=== PATIENT | female | born 1960 | race Caucasian/White ===

== ENCOUNTER 2020-07-06 19:16 | Observation (INO) ==
[2020-07-06] MEDS ORDERED: ONDANSETRON 4 MG/2 ML VIAL IV STA (19:24)
[2020-07-06 19:32] LABS: Basophils # 0.1 10*3/uL (0.0-0.2); Basophils % 0.6 % (0.0-0.8); Eosinophils # 0.2 10*3/uL (0.0-0.87); Eosinophils % 1.7 % (0.00-10.9); Hematocrit 45.8 VOL% (35.7-47.0); Hemoglobin 14.7 GM/DL (12.0-16.0); Immature Granulocytes % 1.8 %; Immature Granulocytes Absolute 0.18 #; Lymphocytes # 2.7 10*3/uL (1.4-4.0); Lymphocytes % 26.3 % (21.3-54.2); Mean Corpuscular HGB Conc 32.1 GM/DL (32-36); Mean Corpuscular Volume 92.2 FL (87-102); Mean Platelet Volume 9.2 FL (9.6-12.0); Monocytes % 8.9 % (1.7-12.7); Neutrophils % 60.7 % (38.7-73.9); Platelet Count 167 T/CUMM (130-400); Red Blood Count 4.97 MC/CUMM (3.8-5.5); White Blood Count 10.2 T/CUMM (4-12)
[2020-07-06 19:51] LABS: Partial Thromboplastin Time 27.6 SECS (23.9-33.8)
[2020-07-06 20:03] LABS: Alanine Aminotransferase 24 U/L (13-56); Albumin 3.4 G/DL (3.4-5.0); Alkaline Phosphatase 100 U/L (45-117); Aspartate Amino Transferase 24 U/L (0-37); Bilirubin,Total < 0.39 MG/DL (0.2-1.0); Blood Urea Nitrogen 26 MG/DL (7-18); Calcium 9.7 MG/DL (8.5-10.1); Carbon Dioxide 29 MMOL/L (21-32); Estimated Glom Filtration Rate 64 ML/MIN; Glucose 105 MG/DL (74-106); Osmolality,Calculated 277.8 MOS/KG (273-304); Potassium 3.3 MMOL/L (3.5-5.1); Sodium 137 MMOL/L (136-145); Total Protein 7.6 G/DL (6.4-8.3)
[2020-07-06] MEDS ORDERED: POTASSIUM CHLORIDE 20 MEQ TABLET PO STA (20:09)
[2020-07-06 20:34] LABS: Bilirubin,Urine Negative (Negative); Blood, Urine Negative (Negative); Glucose,Urine (UA) Negative (Negative); Ketones,Urine Negative (Negative); Mucus,Urine Occasional /LPF (Occasional); Nitrite,Urine Negative (Negative); Protein,Urine Negative; RBC,Urine 2 /HPF (0-4); Squamous Epithelial Cell,Urine Occasional /HPF (0-10); Urine Appearance Slightly Hazy (Clear); Urine Color Straw (Yellow); Urine Specific Gravity 1.008 (1.001-1.035); Urine Urobilinogen < 2.0 EU/DL (0.2-1.0); WBC,Urine 12 /HPF (0-6)
[2020-07-06 20:37] LABS: Barbiturates Screen,Urine Negative (Negative); Benzodiazepines Screen,Urine Negative (Negative); Cannabinoid Screen,Urine Negative (Negative); Opiate Screen,Urine Negative (Negative); Phencyclidine Screen,Urine Negative (Negative)
[2020-07-06] MEDS ORDERED: cefTRIAXone 1,000 MG in SODIUM CHLORIDE 0.9% 100 ML IV STA (20:55)
[2020-07-06] MEDS ORDERED: DEXTROSE 50% 25 GM/50 ML VIAL IV PRN (21:37)
[2020-07-06] MEDS ORDERED: LABETALOL 20 MG/4 ML SYRINGE IV PRN (21:37)
[2020-07-06] MEDS ORDERED: GLUCAGON 1 MG VIAL IM PRN (21:37)
[2020-07-06] MEDS ORDERED: ACETAMINOPHEN 325 MG TABLET PO PRN (21:37)
[2020-07-06] MEDS ORDERED: ZALEPLON 5 MG CAPSULE PO PRN (21:37)
[2020-07-06] MEDS ORDERED: ONDANSETRON 4 MG/2 ML VIAL IV PRN (21:37)
[2020-07-06] MEDS ORDERED: ALBUTEROL 2.5 MG/3 ML NEB RESP TX PRN (21:44)
[2020-07-06] MEDS ORDERED: IBUPROFEN 800 MG TABLET PO PRN (21:44)
[2020-07-06] MEDS ORDERED: tiZANidine 4 MG TABLET PO PRN (21:44)
[2020-07-06] MEDS ORDERED: ENOXAPARIN 40 MG/0.4 ML SYRINGE SUBCUT SCH (22:00)
[2020-07-06] MEDS: BUDESONIDE/FORMOTEROL 160-4.5 INHALER 6 GM INH SCH (23:41)
[2020-07-07] MEDS: FLUoxetine 20 MG CAPSULE PO SCH (08:05)
[2020-07-07] MEDS: MAGNESIUM CHLORIDE 64 MG TABLET PO SCH (08:05)
[2020-07-07] MEDS: predniSONE 20 MG TABLET PO SCH (08:05)
[2020-07-07] MEDS: PANTOPRAZOLE 40 MG TABLET PO SCH (08:05)
[2020-07-07] MEDS: LOSARTAN 50 MG TABLET PO SCH (08:05)
[2020-07-07] MEDS: hydroCHLOROthiazide 25 MG TABLET PO SCH (08:05)
[2020-07-07] MEDS: BUDESONIDE/FORMOTEROL 160-4.5 INHALER 6 GM INH SCH ×2 (08:05→20:41)
[2020-07-07] MEDS: amLODIPine 10 MG TABLET PO SCH (08:05)
[2020-07-07 08:41] LABS: Basophils # 0.1 10*3/uL (0.0-0.2); Basophils % 0.9 % (0.0-0.8); Eosinophils # 0.2 10*3/uL (0.0-0.87); Eosinophils % 2.2 % (0.00-10.9); Hematocrit 46.2 VOL% (35.7-47.0); Hemoglobin 14.6 GM/DL (12.0-16.0); Immature Granulocytes Absolute 0.08 #; Lymphocytes # 1.7 10*3/uL (1.4-4.0); Lymphocytes % 20.4 % (21.3-54.2); Mean Corpuscular HGB Conc 31.6 GM/DL (32-36); Mean Corpuscular Volume 94.5 FL (87-102); Mean Platelet Volume 9.7 FL (9.6-12.0); Monocytes % 8.2 % (1.7-12.7); Neutrophils % 67.3 % (38.7-73.9); Platelet Count 169 T/CUMM (130-400); Red Blood Count 4.89 MC/CUMM (3.8-5.5); White Blood Count 8.2 T/CUMM (4-12)
[2020-07-07] MEDS ORDERED: ASPIRIN 325 MG TABLET PO SCH (09:00)
[2020-07-07 09:19] LABS: Alanine Aminotransferase 22 U/L (13-56); Albumin 3.2 G/DL (3.4-5.0); Alkaline Phosphatase 86 U/L (45-117); Aspartate Amino Transferase 23 U/L (0-37); Bilirubin,Total < 0.39 MG/DL (0.2-1.0); Blood Urea Nitrogen 26 MG/DL (7-18); Calcium 9.1 MG/DL (8.5-10.1); Carbon Dioxide 26 MMOL/L (21-32); Estimated Glom Filtration Rate 64 ML/MIN; Glucose 138 MG/DL (74-106); HDL Cholesterol 41 MG/DL (40-60); Osmolality,Calculated 285.4 MOS/KG (273-304); Potassium 4.1 MMOL/L (3.5-5.1); Risk Ratio 4.68; Sodium 140 MMOL/L (136-145); Total Protein 7.5 G/DL (6.4-8.3); Triglycerides 193 MG/DL (2-150); VLDL CHOLESTEROL 38.6 MG/DL
[2020-07-07] MEDS ORDERED: ASPIRIN EC 81 MG TABLET PO SCH (17:35)
[2020-07-07] MEDS ORDERED: cefTRIAXone 1,000 MG in SYRINGE 1 EACH IV SCH (20:00)
[2020-07-07] MEDS ORDERED: ATORVASTATIN 20 MG TABLET PO SCH (21:00)
[2020-07-08] MEDS: hydroCHLOROthiazide 25 MG TABLET PO SCH (08:04)
[2020-07-08] MEDS: FLUoxetine 20 MG CAPSULE PO SCH (08:04)
[2020-07-08] MEDS: PANTOPRAZOLE 40 MG TABLET PO SCH (08:05)
[2020-07-08] MEDS: amLODIPine 10 MG TABLET PO SCH (08:05)
[2020-07-08] MEDS: predniSONE 20 MG TABLET PO SCH (08:05)
[2020-07-08] MEDS: MAGNESIUM CHLORIDE 64 MG TABLET PO SCH (08:05)
[2020-07-08] MEDS: LOSARTAN 50 MG TABLET PO SCH (08:05)
[2020-07-08] MEDS: BUDESONIDE/FORMOTEROL 160-4.5 INHALER 6 GM INH SCH (08:08)
[2020-07-08 08:33] VITALS: BP 128/67
[2020-07-08] MEDS ORDERED: CLOPIDOGREL 75 MG TABLET PO SCH (09:00)
== END 2020-07-08 11:43 | disposition home or self-care (01) ==
LOC: EDUNIT# → EDBD → N.EDINP 19:16 → N.ED 19:16 → N.TELES 22:09
PROVIDERS: ADMIT Family Medicine; ATTEND Family Medicine

== ENCOUNTER 2020-08-10 19:36 | Inpatient (IN) ==
[2020-08-10] MEDS ORDERED: SODIUM CHLORIDE 0.9% 1,000 ML IV STA (19:55)
[2020-08-10 20:13] LABS: Basophils # 0.1 10*3/uL (0.0-0.2); Basophils % 0.6 % (0.0-0.8); Eosinophils # 0.2 10*3/uL (0.0-0.87); Eosinophils % 1.4 % (0.00-10.9); Hematocrit 46.1 VOL% (35.7-47.0); Hemoglobin 14.4 GM/DL (12.0-16.0); Immature Granulocytes % 1.2 %; Immature Granulocytes Absolute 0.15 #; Lymphocytes # 3.9 10*3/uL (1.4-4.0); Mean Corpuscular HGB Conc 31.2 GM/DL (32-36); Mean Corpuscular Volume 94.9 FL (87-102); Mean Platelet Volume 9.4 FL (9.6-12.0); Monocytes % 8.4 % (1.7-12.7); Neutrophils % 57.4 % (38.7-73.9); Platelet Count 198 T/CUMM (130-400); Red Blood Count 4.86 MC/CUMM (3.8-5.5); Red Cell Distribution Width 14.3 % (9.3-17.3); White Blood Count 12.5 T/CUMM (4-12)
[2020-08-10 20:31] LABS: Alanine Aminotransferase 25 U/L (13-56); Albumin 3.5 G/DL (3.4-5.0); Alkaline Phosphatase 105 U/L (45-117); Aspartate Amino Transferase 28 U/L (0-37); Bilirubin,Total < 0.39 MG/DL (0.2-1.0); Blood Urea Nitrogen 19 MG/DL (7-18); Carbon Dioxide 27 MMOL/L (21-32); Estimated Glom Filtration Rate 68 ML/MIN; Glucose 128 MG/DL (74-106); Osmolality,Calculated 282.4 MOS/KG (273-304); Potassium 3.1 MMOL/L (3.5-5.1); Sodium 140 MMOL/L (136-145); Total Protein 7.8 G/DL (5.0-7.5)
[2020-08-10 20:40] LABS: PT Patient Result 10.9 SECS (9.8-11.9); Partial Thromboplastin Time 25.4 SECS (23.9-33.8)
[2020-08-10] MEDS ORDERED: ALBUTEROL/IPRATROPIUM 3 ML NEB RESP TX STA (22:00)
[2020-08-10 22:06] LABS: Basophils # 0.1 10*3/uL (0.0-0.2); Basophils % 0.3 % (0.0-0.8); Eosinophils % 0.2 % (0.00-10.9); Hematocrit 40.5 VOL% (35.7-47.0); Hemoglobin 12.9 GM/DL (12.0-16.0); Immature Granulocytes % 1.3 %; Immature Granulocytes Absolute 0.19 #; Lymphocytes # 1.3 10*3/uL (1.4-4.0); Lymphocytes % 8.4 % (21.3-54.2); Mean Corpuscular HGB Conc 31.9 GM/DL (32-36); Mean Corpuscular Volume 94.8 FL (87-102); Mean Platelet Volume 9.5 FL (9.6-12.0); Monocytes % 5.4 % (1.7-12.7); Neutrophils % 84.4 % (38.7-73.9); Platelet Count 142 T/CUMM (130-400); Red Blood Count 4.27 MC/CUMM (3.8-5.5); Red Cell Distribution Width 14.4 % (9.3-17.3); White Blood Count 15.1 T/CUMM (4-12)
[2020-08-10] MEDS ORDERED: DEXTROSE 50% 25 GM/50 ML VIAL IV PRN (23:00)
[2020-08-10] MEDS ORDERED: NICOTINE 21 MG/24 HR PATCH TRANSDERM PRN (23:00)
[2020-08-10] MEDS ORDERED: guaiFENesin/DM ER 600-30 MG TABLET PO PRN (23:00)
[2020-08-10] MEDS ORDERED: GLUCAGON 1 MG VIAL IM PRN (23:00)
[2020-08-10] MEDS ORDERED: ALUMINUM/MAGNES/SIMETH MAX STR 30 ML UDCUP PO PRN (23:00)
[2020-08-10] MEDS ORDERED: SIMETHICONE CHEW 125 MG TABLET PO PRN (23:00)
[2020-08-10] MEDS ORDERED: ZALEPLON 5 MG CAPSULE PO PRN (23:00)
[2020-08-10] MEDS ORDERED: ACETAMINOPHEN 325 MG TABLET PO PRN (23:00)
[2020-08-10] MEDS ORDERED: diphenhydrAMINE CAP 25 MG CAPSULE PO PRN (23:00)
[2020-08-10] MEDS ORDERED: PROMETHAZINE 25 MG/1 ML VIAL IM PRN (23:00)
[2020-08-10] MEDS ORDERED: hydrALAZINE 20 MG/1 ML VIAL IV PRN (23:00)
[2020-08-10] MEDS ORDERED: BISACODYL 5 MG TABLET PO PRN (23:00)
[2020-08-10] MEDS ORDERED: ONDANSETRON 4 MG/2 ML VIAL IV PRN (23:00)
[2020-08-10] MEDS ORDERED: MORPHINE 4 MG/1 ML VIAL IV PRN (23:00)
[2020-08-10] MEDS ORDERED: PANTOPRAZOLE 40 MG VIAL IV ONE (23:01)
[2020-08-11] MEDS: ALBUTEROL/IPRATROPIUM 3 ML NEB RESP TX SCH ×4 (00:24→20:24)
[2020-08-11] MEDS: BUDESONIDE/FORMOTEROL 160-4.5 INHALER 6 GM INH SCH ×3 (00:35→22:20)
[2020-08-11] MEDS: DEXT 5% NACL 0.45% KCL 40 MEQ 40 MEQ/1,000 ML BAG IV SCH ×2 (05:00→19:01)
[2020-08-11 06:36] LABS: Basophils % 0.4 % (0.0-0.8); Eosinophils # 0.1 10*3/uL (0.0-0.87); Eosinophils % 0.9 % (0.00-10.9); Hematocrit 37.4 VOL% (35.7-47.0); Hemoglobin 12.1 GM/DL (12.0-16.0); Immature Granulocytes % 0.6 %; Immature Granulocytes Absolute 0.05 #; Lymphocytes # 1.9 10*3/uL (1.4-4.0); Lymphocytes % 23.6 % (21.3-54.2); Mean Corpuscular HGB Conc 32.4 GM/DL (32-36); Mean Platelet Volume 9.9 FL (9.6-12.0); Monocytes % 9.4 % (1.7-12.7); Neutrophils % 65.1 % (38.7-73.9); Platelet Count 140 T/CUMM (130-400); Red Blood Count 3.98 MC/CUMM (3.8-5.5); Red Cell Distribution Width 14.4 % (9.3-17.3)
[2020-08-11 06:53] LABS: Calcium 8.4 MG/DL (8.5-10.1); Osmolality,Calculated 283.3 MOS/KG (273-304)
[2020-08-11] MEDS ORDERED: POTASSIUM CHLORIDE RIDER 10 MEQ in PREMIX 1 EACH IV PRN (07:46)
[2020-08-11] MEDS ORDERED: ERGOCALCIFEROL 50,000 UNIT CAPSULE PO SCH (09:00)
[2020-08-11] MEDS ORDERED: CYANOCOBALAMIN 1000 MCG/1 ML VIAL IM SCH (09:00)
[2020-08-11] MEDS ORDERED: hydroCHLOROthiazide 25 MG TABLET PO SCH (09:00)
[2020-08-11] MEDS ORDERED: predniSONE 20 MG TABLET PO SCH (09:00)
[2020-08-11] MEDS ORDERED: BUDESONIDE/FORMOTEROL 160-4.5 INHALER 6 GM INH SCH (09:00)
[2020-08-11] MEDS: MAGNESIUM CHLORIDE 64 MG TABLET PO SCH (10:06)
[2020-08-11] MEDS: amLODIPine 10 MG TABLET PO SCH (10:06)
[2020-08-11] MEDS: FLUoxetine 20 MG CAPSULE PO SCH (10:06)
[2020-08-11] MEDS: PANTOPRAZOLE 40 MG VIAL IV SCH (10:09)
[2020-08-11] MEDS ORDERED: POTASSIUM CHLORIDE 20 MEQ TABLET PO ONE (11:31)
[2020-08-11 12:36] LABS: Hematocrit 39.3 VOL% (35.7-47.0); Hemoglobin 12.3 GM/DL (12.0-16.0)
[2020-08-11 17:55] LABS: Hematocrit 35.7 VOL% (35.7-47.0); Hemoglobin 11.3 GM/DL (12.0-16.0)
[2020-08-11] MEDS ORDERED: ATORVASTATIN 20 MG TABLET PO SCH (21:00)
[2020-08-12 00:58] LABS: Hematocrit 34.9 VOL% (35.7-47.0); Hemoglobin 10.9 GM/DL (12.0-16.0)
[2020-08-12 01:03] LABS: Calcium 8.3 MG/DL (8.5-10.1); Osmolality,Calculated 283.3 MOS/KG (273-304); Potassium 3.7 MMOL/L (3.5-5.1)
[2020-08-12] MEDS: ALBUTEROL/IPRATROPIUM 3 ML NEB RESP TX SCH ×3 (01:47→13:40)
[2020-08-12 05:35] LABS: Hemoglobin 10.9 GM/DL (12.0-16.0)
[2020-08-12] MEDS ORDERED: SODIUM CHLORIDE 0.9% 1,000 ML IV SCH (08:20)
[2020-08-12] MEDS ORDERED: LIDOCAINE 2% 5 ML VIAL ONE (09:18)
[2020-08-12] MEDS ORDERED: propofoL 200 MG/20 ML VIAL IV ONE (09:18)
[2020-08-12] MEDS: DEXT 5% NACL 0.45% KCL 40 MEQ 40 MEQ/1,000 ML BAG IV SCH (09:50)
[2020-08-12] MEDS: LACTATED RINGERS 1,000 ML IV SCH ×2 (09:56→12:26)
[2020-08-12] MEDS: MAGNESIUM CHLORIDE 64 MG TABLET PO SCH (10:58)
[2020-08-12] MEDS: FLUoxetine 20 MG CAPSULE PO SCH (10:59)
[2020-08-12] MEDS: amLODIPine 10 MG TABLET PO SCH (10:59)
[2020-08-12] MEDS: PANTOPRAZOLE 40 MG VIAL IV SCH (11:00)
[2020-08-12] MEDS: BUDESONIDE/FORMOTEROL 160-4.5 INHALER 6 GM INH SCH (12:15)
[2020-08-12 12:33] VITALS: BP 147/86
== END 2020-08-12 14:37 | disposition home or self-care (01) | DRG 379 ==
LOC: N.ED 19:36 → N.EDINP 23:33 → N.TELES 08-11 04:16
PROVIDERS: ADMIT Hospitalist; ATTEND Hospitalist

== ENCOUNTER 2020-08-18 05:38 | Inpatient (IN) ==
[2020-08-18] MEDS ORDERED: ONDANSETRON 4 MG/2 ML VIAL IV STA (06:17)
[2020-08-18] MEDS ORDERED: PANTOPRAZOLE 40 MG VIAL IV STA (06:17)
[2020-08-18] MEDS ORDERED: SODIUM CHLORIDE 0.9% 1,000 ML IV STA (06:17)
[2020-08-18 06:33] LABS: Basophils # 0.1 10*3/uL (0.0-0.2); Basophils % 0.7 % (0.0-0.8); Eosinophils # 0.1 10*3/uL (0.0-0.87); Eosinophils % 2.1 % (0.00-10.9); Hematocrit 39.9 VOL% (35.7-47.0); Hemoglobin 12.5 GM/DL (12.0-16.0); Immature Granulocytes % 0.6 %; Immature Granulocytes Absolute 0.04 #; Lymphocytes # 1.7 10*3/uL (1.4-4.0); Lymphocytes % 24.8 % (21.3-54.2); Mean Corpuscular HGB Conc 31.3 GM/DL (32-36); Mean Corpuscular Volume 94.8 FL (87-102); Mean Platelet Volume 9.5 FL (9.6-12.0); Monocytes % 9.5 % (1.7-12.7); Neutrophils % 62.3 % (38.7-73.9); Platelet Count 175 T/CUMM (130-400); Red Blood Count 4.21 MC/CUMM (3.8-5.5); Red Cell Distribution Width 14.2 % (9.3-17.3); White Blood Count 6.8 T/CUMM (4-12)
[2020-08-18 06:42] LABS: PT Patient Result 11.1 SECS (9.8-11.9); Partial Thromboplastin Time 25.9 SECS (23.9-33.8)
[2020-08-18 06:53] LABS: Alanine Aminotransferase 23 U/L (13-56); Albumin 3.2 G/DL (3.4-5.0); Alkaline Phosphatase 117 U/L (45-117); Aspartate Amino Transferase 26 U/L (0-37); Bilirubin,Total < 0.39 MG/DL (0.2-1.0); Blood Urea Nitrogen 14 MG/DL (7-18); Calcium 9.2 MG/DL (8.5-10.1); Carbon Dioxide 28 MMOL/L (21-32); Estimated Glom Filtration Rate 89 ML/MIN; Glucose 115 MG/DL (74-106); Osmolality,Calculated 278.5 MOS/KG (273-304); Sodium 139 MMOL/L (136-145); Total Protein 7.3 G/DL (6.4-8.2)
[2020-08-18] MEDS ORDERED: hydrALAZINE 20 MG/1 ML VIAL IV PRN (08:04)
[2020-08-18] MEDS ORDERED: DEXTROSE 50% 25 GM/50 ML VIAL IV PRN (08:04)
[2020-08-18] MEDS ORDERED: ONDANSETRON 4 MG/2 ML VIAL IV PRN (08:04)
[2020-08-18] MEDS ORDERED: DOCUSATE SODIUM 100 MG CAPSULE PO PRN (08:04)
[2020-08-18] MEDS ORDERED: guaiFENesin/DM ER 600-30 MG TABLET PO PRN (08:04)
[2020-08-18] MEDS ORDERED: GLUCAGON 1 MG VIAL IM PRN (08:04)
[2020-08-18] MEDS ORDERED: ACETAMINOPHEN 325 MG TABLET PO PRN (08:04)
[2020-08-18] MEDS: PANTOPRAZOLE 40 MG TABLET PO SCH (09:43)
[2020-08-18] MEDS ORDERED: BISACODYL 5 MG TABLET PO ONE (14:00)
[2020-08-18] MEDS: POTASSIUM CHLORIDE RIDER 10 MEQ in PREMIX 1 EACH IV SCH ×3 (16:15→18:15)
[2020-08-18] MEDS ORDERED: POLYETHYLENE GLYCOL POWDER 255 GM BOTTLE PO ONE (18:00)
[2020-08-19 06:46] LABS: Basophils % 0.5 % (0.0-0.8); Eosinophils # 0.1 10*3/uL (0.0-0.87); Eosinophils % 1.3 % (0.00-10.9); Hematocrit 28.9 VOL% (35.7-47.0); Immature Granulocytes % 0.5 %; Immature Granulocytes Absolute 0.03 #; Lymphocytes # 1.5 10*3/uL (1.4-4.0); Mean Corpuscular HGB Conc 31.1 GM/DL (32-36); Mean Corpuscular Volume 95.7 FL (87-102); Mean Platelet Volume 9.9 FL (9.6-12.0); Monocytes % 10.6 % (1.7-12.7); Neutrophils % 63.1 % (38.7-73.9); Platelet Count 153 T/CUMM (130-400); Red Blood Count 3.02 MC/CUMM (3.8-5.5); White Blood Count 6.1 T/CUMM (4-12)
[2020-08-19 06:54] LABS: INR 1.1; PT Patient Result 11.8 SECS (9.8-11.9)
[2020-08-19 07:02] LABS: Calcium 8.3 MG/DL (8.5-10.1); Osmolality,Calculated 279.4 MOS/KG (273-304); Potassium 3.2 MMOL/L (3.5-5.1)
[2020-08-19] MEDS ORDERED: POTASSIUM CHLORIDE RIDER 10 MEQ in PREMIX 1 EACH IV PRN (07:48)
[2020-08-19] MEDS ORDERED: LACTATED RINGERS 1,000 ML IV SCH (08:00)
[2020-08-19] MEDS: PANTOPRAZOLE 40 MG TABLET PO SCH (08:24)
[2020-08-19] MEDS ORDERED: propofoL 200 MG/20 ML VIAL IV ONE ×2 (08:43→08:45)
[2020-08-19] MEDS ORDERED: LIDOCAINE 2% 5 ML VIAL ONE (08:43)
[2020-08-19] MEDS ORDERED: ESOMEPRAZOLE MAGNESIUM 40 MG PO SCH (15:45)
[2020-08-19] MEDS: hydroCHLOROthiazide 25 MG TABLET PO SCH (17:22)
[2020-08-19] MEDS: MULTIVITAMIN (CENTRUM) TABLET PO SCH (17:22)
[2020-08-19] MEDS: ASCORBIC ACID 500 MG TABLET PO SCH (17:22)
[2020-08-19] MEDS: FLUoxetine 20 MG CAPSULE PO SCH (17:23)
[2020-08-19] MEDS: amLODIPine 10 MG TABLET PO SCH (17:23)
[2020-08-19] MEDS: MAGNESIUM CHLORIDE 64 MG TABLET PO SCH (17:23)
[2020-08-19] MEDS: LOSARTAN 50 MG TABLET PO SCH (17:23)
[2020-08-19] MEDS: POTASSIUM CHLORIDE 20 MEQ TABLET PO PRN ×4 (18:01→23:00)
[2020-08-19] MEDS ORDERED: ALBUTEROL 2.5 MG/3 ML NEB RESP TX PRN (19:00)
[2020-08-19] MEDS: BUDESONIDE/FORMOTEROL 160-4.5 INHALER 6 GM INH SCH (20:42)
[2020-08-20 05:28] LABS: Basophils % 0.7 % (0.0-0.8); Eosinophils # 0.1 10*3/uL (0.0-0.87); Eosinophils % 2.4 % (0.00-10.9); Hematocrit 27.9 VOL% (35.7-47.0); Hemoglobin 8.9 GM/DL (12.0-16.0); Immature Granulocytes % 0.5 %; Immature Granulocytes Absolute 0.03 #; Lymphocytes # 1.7 10*3/uL (1.4-4.0); Lymphocytes % 28.2 % (21.3-54.2); Mean Corpuscular HGB Conc 31.9 GM/DL (32-36); Mean Corpuscular Volume 95.5 FL (87-102); Mean Platelet Volume 9.6 FL (9.6-12.0); Monocytes % 11.7 % (1.7-12.7); Neutrophils % 56.5 % (38.7-73.9); Platelet Count 150 T/CUMM (130-400); Red Blood Count 2.92 MC/CUMM (3.8-5.5); Red Cell Distribution Width 13.9 % (9.3-17.3); White Blood Count 5.9 T/CUMM (4-12)
[2020-08-20 05:39] LABS: Calcium 8.4 MG/DL (8.5-10.1); Osmolality,Calculated 281.1 MOS/KG (273-304); Potassium 3.7 MMOL/L (3.5-5.1)
[2020-08-20] MEDS: MAGNESIUM CHLORIDE 64 MG TABLET PO SCH (09:14)
[2020-08-20] MEDS: ASCORBIC ACID 500 MG TABLET PO SCH (09:14)
[2020-08-20] MEDS: MULTIVITAMIN (CENTRUM) TABLET PO SCH (09:17)
[2020-08-20] MEDS: FLUoxetine 20 MG CAPSULE PO SCH (09:17)
[2020-08-20] MEDS: LOSARTAN 50 MG TABLET PO SCH (09:18)
[2020-08-20] MEDS: amLODIPine 10 MG TABLET PO SCH (09:19)
[2020-08-20] MEDS: hydroCHLOROthiazide 25 MG TABLET PO SCH (09:19)
[2020-08-20] MEDS: PANTOPRAZOLE 40 MG TABLET PO SCH (09:19)
[2020-08-20] MEDS: BUDESONIDE/FORMOTEROL 160-4.5 INHALER 6 GM INH SCH (09:22)
[2020-08-20 15:56] VITALS: BP 110/94
[2020-08-22] MEDS ORDERED: ERGOCALCIFEROL 50,000 UNIT CAPSULE PO SCH (09:00)
== END 2020-08-20 16:02 | disposition home or self-care (01) | DRG 395 ==
LOC: N.ED 05:38 → N.EDINP 08:04 → N.4E 10:35
PROVIDERS: ADMIT Family Medicine; ATTEND Family Medicine

== ENCOUNTER 2020-12-23 08:06 | Inpatient (IN) ==
[2020-12-23] MEDS ORDERED: ALBUTEROL 2.5 MG/3 ML NEB RESP TX STA (09:06)
[2020-12-23] MEDS ORDERED: methylPREDNISolone SOD SUC 125 MG/2 ML VIAL IV STA (09:06)
[2020-12-23 09:20] LABS: Basophils % 0.6 % (0.0-0.8); Eosinophils # 0.1 10*3/uL (0.0-0.87); Hematocrit 43.7 VOL% (35.7-47.0); Hemoglobin 14.1 GM/DL (12.0-16.0); Immature Granulocytes % 0.4 %; Immature Granulocytes Absolute 0.03 #; Lymphocytes # 0.8 10*3/uL (1.4-4.0); Lymphocytes % 10.8 % (21.3-54.2); Mean Corpuscular HGB Conc 32.3 GM/DL (32-36); Mean Corpuscular Volume 88.5 FL (87-102); Mean Platelet Volume 9.8 FL (9.6-12.0); Monocytes % 6.9 % (1.7-12.7); Neutrophils % 79.3 % (38.7-73.9); Platelet Count 104 T/CUMM (130-400); Red Blood Count 4.94 MC/CUMM (3.8-5.5); Red Cell Distribution Width 16.1 % (9.3-17.3); White Blood Count 6.9 T/CUMM (4-12)
[2020-12-23] MEDS ORDERED: AZITHROMYCIN INJ 500 MG in SODIUM CHLORIDE 0.9% 250 ML IV STA (09:44)
[2020-12-23] MEDS ORDERED: cefTRIAXone 1,000 MG in SODIUM CHLORIDE 0.9% 100 ML IV STA (09:44)
[2020-12-23 09:46] LABS: INR 1.1; PT Patient Result 12.4 SECS (10.5-12.0)
[2020-12-23 10:35] LABS: Albumin 2.7 G/DL (3.4-5.0); Bilirubin,Total 0.4 MG/DL (0.20-1.00); Calcium 11.3 MG/DL (8.5-10.1); Osmolality,Calculated 272.1 MOS/KG (273-304); Potassium 3.6 MMOL/L (3.5-5.1); Total Protein 8.7 G/DL (6.4-8.2)
[2020-12-23 12:25] LABS: ABG Base Excess 5.5 MMOL/L (-2.5-2.5); ABG HCO3 29.3 MMOL/L (20-26); ABG Oxygen Saturation 95.5 % (95-100); ABG PCO2 63.4 MM HG (35-48); ABG PH 7.335 (7.35-7.45); ABG PO2 87.3 MM HG (80-95); ABG TCO2 29.6 MMOL/L (23-27)
[2020-12-23] MEDS ORDERED: guaiFENesin/DM ER 600-30 MG TABLET PO PRN (13:49)
[2020-12-23] MEDS ORDERED: GLUCAGON 1 MG VIAL IM PRN (13:49)
[2020-12-23] MEDS ORDERED: BISACODYL 5 MG TABLET PO PRN (13:49)
[2020-12-23] MEDS ORDERED: ACETAMINOPHEN 325 MG TABLET PO PRN (13:49)
[2020-12-23] MEDS ORDERED: ONDANSETRON 4 MG/2 ML VIAL IV PRN (13:49)
[2020-12-23] MEDS ORDERED: DEXTROSE 50% 25 GM/50 ML VIAL IV PRN (13:49)
[2020-12-23] MEDS ORDERED: cefTRIAXone 1,000 MG in SODIUM CHLORIDE 0.9% 100 ML IV SCH (14:00)
[2020-12-23] MEDS: methylPREDNISolone SOD SUC 40 MG/1 ML VIAL IV SCH ×2 (14:30→21:12)
[2020-12-23] MEDS: SODIUM CHLORIDE 0.9% 1,000 ML IV SCH (14:35)
[2020-12-23] MEDS: ENOXAPARIN 40 MG/0.4 ML SYRINGE SUBCUT SCH (17:26)
[2020-12-23] MEDS: ALBUTEROL/IPRATROPIUM 3 ML NEB RESP TX SCH (19:32)
[2020-12-24] MEDS: ALBUTEROL/IPRATROPIUM 3 ML NEB RESP TX SCH ×4 (00:21→19:07)
[2020-12-24 02:57] LABS: Basophils % 0.2 % (0.0-0.8); Hematocrit 40.8 VOL% (35.7-47.0); Hemoglobin 12.8 GM/DL (12.0-16.0); Immature Granulocytes % 0.8 %; Immature Granulocytes Absolute 0.05 #; Lymphocytes # 0.8 10*3/uL (1.4-4.0); Lymphocytes % 12.9 % (21.3-54.2); Mean Corpuscular HGB Conc 31.4 GM/DL (32-36); Mean Corpuscular Volume 88.5 FL (87-102); Neutrophils % 83.1 % (38.7-73.9); Platelet Count 83 T/CUMM (130-400); Red Blood Count 4.61 MC/CUMM (3.8-5.5); Red Cell Distribution Width 15.8 % (9.3-17.3)
[2020-12-24 03:09] LABS: Alanine Aminotransferase 17 U/L (13-56); Albumin 2.5 G/DL (3.4-5.0); Alkaline Phosphatase 84 U/L (45-117); Aspartate Amino Transferase 33 U/L (0-37); Bilirubin,Total < 0.39 MG/DL (0.20-1.00); Blood Urea Nitrogen 19 MG/DL (7-18); Calcium 10.7 MG/DL (8.5-10.1); Carbon Dioxide 32 MMOL/L (21-32); Estimated Glom Filtration Rate 87 ML/MIN; Glucose 128 MG/DL (74-106); Osmolality,Calculated 280.5 MOS/KG (273-304); Potassium 2.6 MMOL/L (3.5-5.1); Sodium 139 MMOL/L (136-145); Total Protein 7.8 G/DL (6.4-8.2)
[2020-12-24 03:59] LABS: Platelet Estimate Decreased; Polychromasia Few
[2020-12-24 04:57] LABS: ABG Base Excess 6.8 MMOL/L (-2.5-2.5); ABG HCO3 30.4 MMOL/L (20-26); ABG Oxygen Saturation 87.7 % (95-100); ABG PCO2 51.1 MM HG (35-48); ABG PH 7.416 (7.35-7.45); ABG PO2 56.1 MM HG (80-95); ABG TCO2 28.7 MMOL/L (23-27); Allen Test Positive; Pt O2 Delivery Device BIPAP
[2020-12-24] MEDS: methylPREDNISolone SOD SUC 40 MG/1 ML VIAL IV SCH ×3 (05:55→22:45)
[2020-12-24] MEDS: SODIUM CHLORIDE 0.9% 1,000 ML IV SCH ×2 (06:36→20:08)
[2020-12-24] MEDS: AZITHROMYCIN 250 MG TABLET PO SCH (08:21)
[2020-12-24] MEDS: FLUoxetine 20 MG CAPSULE PO SCH (08:21)
[2020-12-24] MEDS: MULTIVITAMIN (CENTRUM) TABLET PO SCH (08:22)
[2020-12-24] MEDS: amLODIPine 10 MG TABLET PO SCH (08:22)
[2020-12-24] MEDS: LOSARTAN 50 MG TABLET PO SCH (08:22)
[2020-12-24] MEDS: hydroCHLOROthiazide 25 MG TABLET PO SCH (08:22)
[2020-12-24] MEDS: cefTRIAXone 1,000 MG in SODIUM CHLORIDE 0.9% 100 ML IV SCH (08:23)
[2020-12-24] MEDS ORDERED: POTASSIUM CHLORIDE 20 MEQ TABLET PO ONE ×2 (08:31→13:41)
[2020-12-24] MEDS ORDERED: busPIRone 15 MG TABLET PO SCH (09:00)
[2020-12-24] MEDS: BUDESONIDE/FORMOTEROL 160-4.5 INHALER 6 GM INH SCH ×2 (09:40→20:40)
[2020-12-24] MEDS: ENOXAPARIN 40 MG/0.4 ML SYRINGE SUBCUT SCH (17:45)
[2020-12-24] MEDS: MONTELUKAST 10 MG TABLET PO SCH (20:40)
[2020-12-24] MEDS: POTASSIUM CHLORIDE 20 MEQ TABLET PO PRN ×2 (20:40→22:45)
[2020-12-25] MEDS: ALBUTEROL/IPRATROPIUM 3 ML NEB RESP TX SCH ×4 (00:55→20:04)
[2020-12-25] MEDS: POTASSIUM CHLORIDE 20 MEQ TABLET PO PRN (01:05)
[2020-12-25] MEDS: SODIUM CHLORIDE 0.9% 1,000 ML IV SCH ×3 (01:08→21:54)
[2020-12-25] MEDS: methylPREDNISolone SOD SUC 40 MG/1 ML VIAL IV SCH ×3 (05:29→21:50)
[2020-12-25] MEDS: MULTIVITAMIN (CENTRUM) TABLET PO SCH (08:04)
[2020-12-25] MEDS: LOSARTAN 50 MG TABLET PO SCH (08:04)
[2020-12-25] MEDS: AZITHROMYCIN 250 MG TABLET PO SCH (08:04)
[2020-12-25] MEDS: hydroCHLOROthiazide 25 MG TABLET PO SCH (08:04)
[2020-12-25] MEDS: amLODIPine 10 MG TABLET PO SCH (08:05)
[2020-12-25] MEDS: cefTRIAXone 1,000 MG in SODIUM CHLORIDE 0.9% 100 ML IV SCH (08:09)
[2020-12-25] MEDS: BUDESONIDE/FORMOTEROL 160-4.5 INHALER 6 GM INH SCH ×2 (08:57→20:44)
[2020-12-25] MEDS: FLUoxetine 20 MG CAPSULE PO SCH (08:57)
[2020-12-25 11:22] LABS: Rheumatoid Factor < 15 IU/ML (<15); Uric Acid 1.9 MG/DL (2.6-6.0)
[2020-12-25] MEDS ORDERED: KETOROLAC 30 MG/1 ML VIAL IV ONE (11:29)
[2020-12-25 11:37] LABS: Cyclic Citrull Peptide Interp Negative
[2020-12-25] MEDS: ENOXAPARIN 40 MG/0.4 ML SYRINGE SUBCUT SCH (17:34)
[2020-12-25] MEDS: MONTELUKAST 10 MG TABLET PO SCH (20:43)
[2020-12-26] MEDS: ALBUTEROL/IPRATROPIUM 3 ML NEB RESP TX SCH ×3 (00:36→13:56)
[2020-12-26 04:23] LABS: Basophils % 0.1 % (0.0-0.8); Hematocrit 38.8 VOL% (35.7-47.0); Hemoglobin 12.3 GM/DL (12.0-16.0); Immature Granulocytes % 2.5 %; Immature Granulocytes Absolute 0.22 #; Lymphocytes # 0.6 10*3/uL (1.4-4.0); Lymphocytes % 7.2 % (21.3-54.2); Mean Corpuscular HGB Conc 31.7 GM/DL (32-36); Mean Corpuscular Volume 89.8 FL (87-102); Mean Platelet Volume 10.1 FL (9.6-12.0); Monocytes % 5.7 % (1.7-12.7); NRBC # 0.04 10*3/uL; Neutrophils % 84.5 % (38.7-73.9); Platelet Count 91 T/CUMM (130-400); Red Blood Count 4.32 MC/CUMM (3.8-5.5); Red Cell Distribution Width 16.2 % (9.3-17.3); White Blood Count 8.6 T/CUMM (4-12)
[2020-12-26 04:38] LABS: Calcium 9.4 MG/DL (8.5-10.1); Osmolality,Calculated 282.7 MOS/KG (273-304); Potassium 3.5 MMOL/L (3.5-5.1)
[2020-12-26] MEDS: methylPREDNISolone SOD SUC 40 MG/1 ML VIAL IV SCH ×2 (05:47→13:22)
[2020-12-26 06:51] LABS: Polychromasia 1+
[2020-12-26 06:52] LABS: Platelet Estimate Decreased
[2020-12-26] MEDS: amLODIPine 10 MG TABLET PO SCH (08:33)
[2020-12-26] MEDS: LOSARTAN 50 MG TABLET PO SCH (08:33)
[2020-12-26] MEDS: MULTIVITAMIN (CENTRUM) TABLET PO SCH (08:33)
[2020-12-26] MEDS: AZITHROMYCIN 250 MG TABLET PO SCH (08:33)
[2020-12-26] MEDS: hydroCHLOROthiazide 25 MG TABLET PO SCH (08:33)
[2020-12-26] MEDS: FLUoxetine 20 MG CAPSULE PO SCH (08:33)
[2020-12-26] MEDS: cefTRIAXone 1,000 MG in SODIUM CHLORIDE 0.9% 100 ML IV SCH (08:34)
[2020-12-26] MEDS: SODIUM CHLORIDE 0.9% 1,000 ML IV SCH (08:34)
[2020-12-26] MEDS: BUDESONIDE/FORMOTEROL 160-4.5 INHALER 6 GM INH SCH (08:35)
[2020-12-26 16:05] VITALS: BP 151/82
[2020-12-28 12:10] LABS: 25-Hydroxy D Total 84 ng/mL; 25-Hydroxy D2 66 ng/mL; 25-Hydroxy D3 18 ng/mL
== END 2020-12-26 17:53 | disposition home or self-care (01) | DRG 191 ==
LOC: N.ED 08:06 → SUATTDRO 13:49 → N.EDINP 13:49 → N.TELEN 15:08 → N.3E 12-26 01:44
PROVIDERS: ADMIT Emergency Medicine; ATTEND Hospitalist

== ENCOUNTER 2021-04-24 15:20 | Inpatient (IN) ==
[2021-04-24] MEDS ORDERED: methylPREDNISolone SOD SUC 125 MG/2 ML VIAL IV STA (19:23)
[2021-04-24] MEDS ORDERED: SODIUM CHLORIDE 0.9% 500 ML IV STA ×2 (19:23→20:42)
[2021-04-24] MEDS ORDERED: ONDANSETRON 4 MG/2 ML VIAL IV STA (19:23)
[2021-04-24] MEDS ORDERED: ALBUTEROL NEB SOLN 5 MG/ML 20 ML/BOTTLE CONT NEB SCH (19:30)
[2021-04-24 19:59] LABS: Basophils % 0.2 % (0.0-0.8); Eosinophils % 0.2 % (0.00-10.9); Hematocrit 28.3 VOL% (35.7-47.0); Hemoglobin 8.4 GM/DL (12.0-16.0); Immature Granulocytes % 0.6 %; Immature Granulocytes Absolute 0.05 #; Lymphocytes # 1.4 10*3/uL (1.4-4.0); Lymphocytes % 17.1 % (21.3-54.2); Mean Corpuscular HGB Conc 29.7 GM/DL (32-36); Mean Corpuscular Volume 95.9 FL (87-102); Mean Platelet Volume 10.6 FL (9.6-12.0); Monocytes % 10.8 % (1.7-12.7); NRBC # 0.02 10*3/uL; Neutrophils % 71.1 % (38.7-73.9); Platelet Count 61 T/CUMM (130-400); Red Blood Count 2.95 MC/CUMM (3.8-5.5); White Blood Count 8.1 T/CUMM (4-12)
[2021-04-24 20:09] LABS: INR 1.2; PT Patient Result 13.2 SECS (10.5-12.0)
[2021-04-24 20:11] LABS: Amorphous Crystals,Urine Occasional /HPF (Few); Bilirubin,Urine Negative (Negative); Blood, Urine Moderate mg/dL (Negative); Glucose,Urine (UA) Negative (Negative); Ketones,Urine Negative (Negative); Nitrite,Urine Positive (Negative); Protein,Urine 100 MG/DL; RBC,Urine 5 /HPF (0-4); Urine Appearance CLOUDY (Clear); Urine Color Yellow (Yellow); Urine Specific Gravity 1.013 (1.001-1.035); Urine Urobilinogen < 2.0 EU/DL (0.2-1.0)
[2021-04-24] MEDS ORDERED: cefTRIAXone 1,000 MG in SODIUM CHLORIDE 0.9% 100 ML IV STA (20:13)
[2021-04-24 20:25] LABS: Alanine Aminotransferase 11 U/L (13-56); Albumin 1.9 G/DL (3.4-5.0); Alkaline Phosphatase 96 U/L (45-117); Aspartate Amino Transferase 18 U/L (0-37); Bilirubin,Total < 0.39 MG/DL (0.20-1.00); Blood Urea Nitrogen 71 MG/DL (7-18); Calcium 10.5 MG/DL (8.5-10.1); Carbon Dioxide 20 MMOL/L (21-32); Estimated Glom Filtration Rate 5 ML/MIN; Glucose 81 MG/DL (74-106); Osmolality,Calculated 296.5 MOS/KG (273-304); Potassium 3.8 MMOL/L (3.5-5.1); Sodium 139 MMOL/L (136-145)
[2021-04-24] MEDS: SODIUM CHLORIDE 0.9% 1,000 ML IV SCH (23:31)
[2021-04-25] MEDS: LEVALBUTEROL 1.25 MG/3 ML NEB RESP TX SCH ×4 (00:51→20:26)
[2021-04-25 05:22] LABS: Hematocrit 24.8 VOL% (35.7-47.0); Hemoglobin 7.4 GM/DL (12.0-16.0); Immature Granulocytes % 0.6 %; Immature Granulocytes Absolute 0.04 #; Lymphocytes # 0.3 10*3/uL (1.4-4.0); Lymphocytes % 4.6 % (21.3-54.2); Mean Corpuscular HGB Conc 29.8 GM/DL (32-36); Mean Corpuscular Volume 97.3 FL (87-102); Mean Platelet Volume 10.1 FL (9.6-12.0); Monocytes % 1.2 % (1.7-12.7); Neutrophils % 93.6 % (38.7-73.9); Platelet Count 50 T/CUMM (130-400); Red Blood Count 2.55 MC/CUMM (3.8-5.5); White Blood Count 6.6 T/CUMM (4-12)
[2021-04-25 05:36] LABS: Albumin 1.6 G/DL (3.4-5.0); Bilirubin,Total 0.6 MG/DL (0.20-1.00); Osmolality,Calculated 301.4 MOS/KG (273-304); Total Protein 7.1 G/DL (6.4-8.2)
[2021-04-25 05:51] LABS: Eosinophils 1 % (0-10); Hypochromasia 1+; Lymphocytes 2 % (20-55); Microcytosis 1+; Platelet Estimate Decreased; Segmented Neutrophils 96 % (50-85); Total Cells Counted 100
[2021-04-25] MEDS: PANTOPRAZOLE 40 MG TABLET PO SCH (10:07)
[2021-04-25] MEDS: ACETAMINOPHEN 325 MG TABLET PO PRN (10:09)
[2021-04-25] MEDS ORDERED: AZITHROMYCIN INJ 500 MG in SODIUM CHLORIDE 0.9% 250 ML IV ONE (13:42)
[2021-04-25] MEDS ORDERED: SODIUM CHLORIDE 0.9% 1,000 ML IV PRN (15:56)
[2021-04-25] MEDS: methylPREDNISolone SOD SUC 40 MG/1 ML VIAL IV SCH ×2 (16:09→21:00)
[2021-04-25] MEDS: SODIUM BICARB INJ 50 MEQ in SODIUM CHLORIDE 0.45% 1,000 ML IV SCH (16:09)
[2021-04-25] MEDS ORDERED: ZOLEDRONIC ACID IV ONE (16:30)
[2021-04-25] MEDS: cefTRIAXone 1,000 MG in SODIUM CHLORIDE 0.9% 100 ML IV SCH (21:00)
[2021-04-26] MEDS: SODIUM CHLORIDE 0.9% 1,000 ML IV SCH (00:44)
[2021-04-26] MEDS: LEVALBUTEROL 1.25 MG/3 ML NEB RESP TX SCH ×4 (01:21→20:49)
[2021-04-26] MEDS: methylPREDNISolone SOD SUC 40 MG/1 ML VIAL IV SCH ×3 (05:01→21:36)
[2021-04-26 05:29] LABS: Hematocrit 24.8 VOL% (35.7-47.0); Hemoglobin 7.3 GM/DL (12.0-16.0); Immature Granulocytes Absolute 0.06 #; Lymphocytes # 0.6 10*3/uL (1.4-4.0); Lymphocytes % 9.3 % (21.3-54.2); Mean Corpuscular HGB Conc 29.4 GM/DL (32-36); Mean Corpuscular Volume 98.8 FL (87-102); Mean Platelet Volume 10.1 FL (9.6-12.0); Monocytes % 3.3 % (1.7-12.7); Neutrophils % 86.4 % (38.7-73.9); Platelet Count 54 T/CUMM (130-400); Red Blood Count 2.51 MC/CUMM (3.8-5.5); Red Cell Distribution Width 18.4 % (9.3-17.3); White Blood Count 6.2 T/CUMM (4-12)
[2021-04-26 05:38] LABS: Calcium 9.5 MG/DL (8.5-10.1); Osmolality,Calculated 305.1 MOS/KG (273-304); Potassium 4.1 MMOL/L (3.5-5.1)
[2021-04-26 06:13] LABS: Anisocytosis 1+; Hypochromasia 1+; Microcytosis 1+; Tear Drop Cells Slight
[2021-04-26 06:14] LABS: Ovalocytes Slight; Platelet Estimate Decreased
[2021-04-26] MEDS ORDERED: CYANOCOBALAMIN 1000 MCG/1 ML VIAL IM SCH (08:00)
[2021-04-26] MEDS: PANTOPRAZOLE 40 MG TABLET PO SCH (08:46)
[2021-04-26] MEDS: MAGNESIUM CHLORIDE 64 MG TABLET PO SCH (08:46)
[2021-04-26] MEDS: CALCIUM (CARBONATE) 500 MG TABLET PO SCH (08:46)
[2021-04-26] MEDS: METOCLOPRAMIDE 5 MG TABLET PO SCH (08:47)
[2021-04-26] MEDS: DOCUSATE SODIUM 100 MG/10 ML UDCUP PO SCH ×2 (08:47→21:03)
[2021-04-26] MEDS ORDERED: GRANISETRON 1 MG/1 ML VIAL IV SCH (09:00)
[2021-04-26] MEDS ORDERED: CYCLOPHOSPHAMIDE INJ 500 MG in SODIUM CHLORIDE 0.9% 250 ML IV ONE (09:00)
[2021-04-26] MEDS: SODIUM BICARB INJ 50 MEQ in SODIUM CHLORIDE 0.45% 1,000 ML IV SCH (09:02)
[2021-04-26] MEDS: SODIUM CHLORIDE 23.4% CONC INJ 38.5 MEQ, SODIUM BICARB INJ 100 MEQ in STERILE WATER INJ... IV SCH (09:20)
[2021-04-26] MEDS ORDERED: GRANISETRON 1 MG/1 ML VIAL IV ONE (09:30)
[2021-04-26] MEDS: AZITHROMYCIN INJ 250 MG in SODIUM CHLORIDE 0.9% 250 ML IV SCH (14:00)
[2021-04-26] MEDS: ACETAMINOPHEN 325 MG TABLET PO PRN (16:41)
[2021-04-26] MEDS: cefTRIAXone 1,000 MG in SODIUM CHLORIDE 0.9% 100 ML IV SCH (20:58)
[2021-04-27] MEDS: LEVALBUTEROL 1.25 MG/3 ML NEB RESP TX SCH ×4 (00:17→20:09)
[2021-04-27] MEDS: SODIUM CHLORIDE 23.4% CONC INJ 38.5 MEQ, SODIUM BICARB INJ 100 MEQ in STERILE WATER INJ... IV SCH ×3 (00:27→18:35)
[2021-04-27] MEDS: methylPREDNISolone SOD SUC 40 MG/1 ML VIAL IV SCH ×3 (05:52→21:06)
[2021-04-27 06:16] LABS: Calcium 8.4 MG/DL (8.5-10.1); Osmolality,Calculated 299.4 MOS/KG (273-304); Potassium 3.5 MMOL/L (3.5-5.1)
[2021-04-27 07:40] LABS: Hematocrit 22.3 VOL% (35.7-47.0); Hemoglobin 6.7 GM/DL (12.0-16.0); Immature Granulocytes % 1.3 %; Immature Granulocytes Absolute 0.09 #; Lymphocytes # 0.7 10*3/uL (1.4-4.0); Lymphocytes % 10.9 % (21.3-54.2); Mean Corpuscular Volume 97.8 FL (87-102); Mean Platelet Volume 9.8 FL (9.6-12.0); Monocytes % 7.8 % (1.7-12.7); NRBC # 0.02 10*3/uL; Platelet Count 42 T/CUMM (130-400); Red Blood Count 2.28 MC/CUMM (3.8-5.5); Red Cell Distribution Width 18.4 % (9.3-17.3); White Blood Count 6.7 T/CUMM (4-12)
[2021-04-27] MEDS ORDERED: SODIUM CHLORIDE 0.9% 1,000 ML IV PRN (08:11)
[2021-04-27] MEDS: CALCIUM (CARBONATE) 500 MG TABLET PO SCH (08:11)
[2021-04-27] MEDS: PANTOPRAZOLE 40 MG TABLET PO SCH (08:11)
[2021-04-27] MEDS: METOCLOPRAMIDE 5 MG TABLET PO SCH (08:11)
[2021-04-27] MEDS: MAGNESIUM CHLORIDE 64 MG TABLET PO SCH (08:11)
[2021-04-27] MEDS: DOCUSATE SODIUM 100 MG/10 ML UDCUP PO SCH ×2 (08:11→21:05)
[2021-04-27] MEDS: ONDANSETRON 4 MG/2 ML VIAL IV PRN ×2 (08:15→14:32)
[2021-04-27 08:26] LABS: Hypochromasia 2+; Microcytosis 1+; Ovalocytes Slight; Platelet Estimate Decreased
[2021-04-27] MEDS ORDERED: VANCOMYCIN INJ 1,000 MG in SODIUM CHLORIDE 0.9% 250 ML IV PRN (08:51)
[2021-04-27] MEDS ORDERED: VANCOMYCIN INJ 1,000 MG in SODIUM CHLORIDE 0.9% 250 ML IV ONE (09:30)
[2021-04-27] MEDS ORDERED: FUROSEMIDE 40 MG/4 ML VIAL IV ONE (10:59)
[2021-04-27] MEDS: ACETAMINOPHEN 325 MG TABLET PO PRN ×2 (12:54→18:45)
[2021-04-27] MEDS: AZITHROMYCIN INJ 250 MG in SODIUM CHLORIDE 0.9% 250 ML IV SCH (14:17)
[2021-04-27] MEDS: cefTRIAXone 1,000 MG in SODIUM CHLORIDE 0.9% 100 ML IV SCH (21:06)
[2021-04-27] MEDS ORDERED: LOPERAMIDE 2 MG CAPSULE PO PRN ×2 (21:16)
[2021-04-27] MEDS ORDERED: MYLANTA/LIDO VISC 2:1 300 ML BOTTLE SWISH/SWAL PRN (21:16)
[2021-04-27] MEDS ORDERED: TEMAZEPAM 7.5 MG CAPSULE PO PRN (21:16)
[2021-04-27] MEDS ORDERED: guaiFENesin 200 MG/10 ML UDCUP PO PRN (21:16)
[2021-04-27] MEDS ORDERED: MAGNESIUM HYDROXIDE SUSP 30 ML UDCUP PO PRN (21:16)
[2021-04-27] MEDS ORDERED: BENZTROPINE 2 MG/2 ML AMP IV PRN (21:16)
[2021-04-27] MEDS ORDERED: diphenhydrAMINE CAP 25 MG CAPSULE PO PRN (21:16)
[2021-04-27] MEDS ORDERED: ALUMINUM/MAGNES/SIMETH MAX STR 30 ML UDCUP PO PRN (21:16)
[2021-04-27] MEDS ORDERED: LACTULOSE 20 GM/30 ML UDCUP PO PRN (21:16)
[2021-04-27] MEDS ORDERED: MYLANTA/LIDO VISC 2:1 300 ML BOTTLE SWISH/SPIT PRN (21:16)
[2021-04-27] MEDS ORDERED: traMADol 50 MG TABLET PO PRN (21:16)
[2021-04-28] MEDS: LEVALBUTEROL 1.25 MG/3 ML NEB RESP TX SCH ×4 (00:53→18:45)
[2021-04-28] MEDS: methylPREDNISolone SOD SUC 40 MG/1 ML VIAL IV SCH ×2 (06:03→14:57)
[2021-04-28] MEDS: ACETAMINOPHEN 325 MG TABLET PO PRN (06:03)
[2021-04-28 06:09] LABS: Hematocrit 33.2 VOL% (35.7-47.0); Immature Granulocytes % 1.3 %; Immature Granulocytes Absolute 0.08 #; Lymphocytes # 0.4 10*3/uL (1.4-4.0); Lymphocytes % 6.7 % (21.3-54.2); Mean Corpuscular HGB Conc 30.1 GM/DL (32-36); Mean Corpuscular Volume 94.9 FL (87-102); Mean Platelet Volume 10.5 FL (9.6-12.0); Monocytes % 7.2 % (1.7-12.7); Neutrophils % 84.8 % (38.7-73.9); Red Cell Distribution Width 17.9 % (9.3-17.3); White Blood Count 5.9 T/CUMM (4-12)
[2021-04-28 06:11] LABS: Platelet Count 36 T/CUMM (130-400)
[2021-04-28 06:27] LABS: Calcium 8.3 MG/DL (8.5-10.1); Osmolality,Calculated 296.8 MOS/KG (273-304); Potassium 3.8 MMOL/L (3.5-5.1)
[2021-04-28 06:31] LABS: Platelet Estimate Decreased
[2021-04-28 06:33] LABS: Anisocytosis 2+
[2021-04-28 06:34] LABS: Macrocytosis Slight; Tear Drop Cells Few
[2021-04-28] MEDS: CALCIUM (CARBONATE) 500 MG TABLET PO SCH (09:34)
[2021-04-28] MEDS: MAGNESIUM CHLORIDE 64 MG TABLET PO SCH (09:34)
[2021-04-28] MEDS: METOCLOPRAMIDE 5 MG TABLET PO SCH (09:35)
[2021-04-28] MEDS: DOCUSATE SODIUM 100 MG/10 ML UDCUP PO SCH ×2 (09:35→22:33)
[2021-04-28] MEDS: PANTOPRAZOLE 40 MG TABLET PO SCH (09:35)
[2021-04-28] MEDS ORDERED: LEVOFLOXACIN INJ 750 MG/150 ML PREMIX IV ONE ×3 (10:00→12:00)
[2021-04-28] MEDS ORDERED: SODIUM CHLORIDE 0.9% 1,000 ML IV PRN (10:16)
[2021-04-28] MEDS ORDERED: FUROSEMIDE 20 MG/2 ML VIAL IV ONE (11:40)
[2021-04-28] MEDS: SODIUM CHLORIDE 23.4% CONC INJ 38.5 MEQ, SODIUM BICARB INJ 100 MEQ in STERILE WATER INJ... IV SCH (12:24)
[2021-04-28] MEDS: LINEZOLID INJ 600 MG/300 ML PREMIX IV SCH (14:56)
[2021-04-28] MEDS: ALPRAZolam 0.25 MG TABLET PO PRN ×2 (14:58→18:29)
[2021-04-28] MEDS ORDERED: ALPRAZolam 0.25 MG TABLET PO ONE ×2 (18:04→18:30)
[2021-04-29] MEDS: LEVALBUTEROL 1.25 MG/3 ML NEB RESP TX SCH ×4 (00:56→19:22)
[2021-04-29] MEDS: LINEZOLID INJ 600 MG/300 ML PREMIX IV SCH ×3 (03:37→15:23)
[2021-04-29] MEDS: methylPREDNISolone SOD SUC 40 MG/1 ML VIAL IV SCH ×3 (05:27→05:31)
[2021-04-29] MEDS: SODIUM CHLORIDE 23.4% CONC INJ 38.5 MEQ, SODIUM BICARB INJ 100 MEQ in STERILE WATER INJ... IV SCH ×2 (05:28→21:35)
[2021-04-29 05:39] LABS: Hematocrit 30.9 VOL% (35.7-47.0); Hemoglobin 9.2 GM/DL (12.0-16.0); Immature Granulocytes % 1.1 %; Immature Granulocytes Absolute 0.04 #; Lymphocytes # 0.6 10*3/uL (1.4-4.0); Lymphocytes % 16.7 % (21.3-54.2); Mean Corpuscular HGB Conc 29.8 GM/DL (32-36); Mean Corpuscular Volume 95.4 FL (87-102); Mean Platelet Volume 9.8 FL (9.6-12.0); Monocytes % 8.2 % (1.7-12.7); Red Blood Count 3.24 MC/CUMM (3.8-5.5); Red Cell Distribution Width 18.1 % (9.3-17.3); White Blood Count 3.8 T/CUMM (4-12)
[2021-04-29 06:11] LABS: Albumin 1.6 G/DL (3.4-5.0); Bilirubin,Total 1.4 MG/DL (0.20-1.00); Calcium 7.8 MG/DL (8.5-10.1); Osmolality,Calculated 303.3 MOS/KG (273-304); Potassium 3.3 MMOL/L (3.5-5.1); Total Protein 6.9 G/DL (6.4-8.2)
[2021-04-29 06:19] LABS: Platelet Count 26 T/CUMM (130-400)
[2021-04-29] MEDS ORDERED: SODIUM CHLORIDE 0.9% 1,000 ML IV PRN (08:05)
[2021-04-29] MEDS ORDERED: POTASSIUM CHLORIDE RIDER 10 MEQ/100 ML PREMIX IV PRN (08:09)
[2021-04-29] MEDS: ONDANSETRON 4 MG/2 ML VIAL IV PRN (09:09)
[2021-04-29] MEDS: CALCIUM (CARBONATE) 500 MG TABLET PO SCH (09:47)
[2021-04-29] MEDS: PANTOPRAZOLE 40 MG TABLET PO SCH (09:47)
[2021-04-29] MEDS: METOCLOPRAMIDE 5 MG TABLET PO SCH (09:47)
[2021-04-29] MEDS: DOCUSATE SODIUM 100 MG/10 ML UDCUP PO SCH ×2 (09:47→20:17)
[2021-04-29] MEDS: MAGNESIUM CHLORIDE 64 MG TABLET PO SCH (09:47)
[2021-04-29] MEDS ORDERED: POTASSIUM CHLORIDE 20 MEQ PACK PO ONE (10:17)
[2021-04-29] MEDS: ALPRAZolam 0.25 MG TABLET PO PRN (18:41)
[2021-04-30] MEDS: LEVALBUTEROL 1.25 MG/3 ML NEB RESP TX SCH ×4 (00:02→19:16)
[2021-04-30] MEDS ORDERED: LEVOFLOXACIN INJ 500 MG/100 ML PREMIX IV SCH ×2 (09:00→12:00)
[2021-04-30 13:31] LABS: Alanine Aminotransferase 12 U/L (13-56); Albumin 1.7 G/DL (3.4-5.0); Alkaline Phosphatase 77 U/L (45-117); Aspartate Amino Transferase 19 U/L (0-37); Bilirubin,Total < 0.39 MG/DL (0.20-1.00); Blood Urea Nitrogen 78 MG/DL (7-18); Calcium 7.4 MG/DL (8.5-10.1); Carbon Dioxide 25 MMOL/L (21-32); Estimated Glom Filtration Rate 7 ML/MIN; Glucose 78 MG/DL (74-106); Osmolality,Calculated 298.5 MOS/KG (273-304); Potassium 3.8 MMOL/L (3.5-5.1); Sodium 139 MMOL/L (136-145); Total Protein 6.7 G/DL (6.4-8.2)
[2021-04-30] MEDS: SODIUM CHLORIDE 23.4% CONC INJ 38.5 MEQ, SODIUM BICARB INJ 100 MEQ in STERILE WATER INJ... IV SCH ×2 (14:08→22:38)
[2021-04-30] MEDS: CALCIUM (CARBONATE) 500 MG TABLET PO SCH (14:09)
[2021-04-30] MEDS: METOCLOPRAMIDE 5 MG TABLET PO SCH (14:09)
[2021-04-30] MEDS: PANTOPRAZOLE 40 MG TABLET PO SCH (14:09)
[2021-04-30] MEDS: LINEZOLID INJ 600 MG/300 ML PREMIX IV SCH ×2 (14:09→15:18)
[2021-04-30] MEDS: predniSONE 20 MG TABLET PO SCH (14:09)
[2021-04-30] MEDS: MAGNESIUM CHLORIDE 64 MG TABLET PO SCH (14:09)
[2021-04-30 14:25] LABS: Hematocrit 30.3 VOL% (35.7-47.0); Mean Corpuscular HGB Conc 29.7 GM/DL (32-36); Mean Corpuscular Volume 95.6 FL (87-102); Red Blood Count 3.17 MC/CUMM (3.8-5.5); White Blood Count 4.9 T/CUMM (4-12)
[2021-04-30 14:26] LABS: Platelet Count 39 T/CUMM (130-400); Platelet Estimate Decreased; Red Cell Distribution Width 18.4 % (9.3-17.3)
[2021-04-30] MEDS: DOCUSATE SODIUM 100 MG/10 ML UDCUP PO SCH (15:18)
[2021-04-30] MEDS: ALPRAZolam 0.25 MG TABLET PO PRN (17:29)
[2021-04-30 17:39] LABS: Eosinophils % 0.8 % (0.00-10.9); Immature Granulocytes % 0.8 %; Immature Granulocytes Absolute 0.04 #; Lymphocytes # 0.6 10*3/uL (1.4-4.0); Lymphocytes % 12.8 % (21.3-54.2); Monocytes % 7.7 % (1.7-12.7); NRBC # 0.02 10*3/uL; Neutrophils % 77.9 % (38.7-73.9)
[2021-04-30] MEDS ORDERED: ALBUMIN 25% 50 GM/200 ML VIAL IV ONE (17:42)
[2021-05-01] MEDS: LEVALBUTEROL 1.25 MG/3 ML NEB RESP TX SCH ×3 (00:01→15:03)
[2021-05-01] MEDS: DOCUSATE SODIUM 100 MG/10 ML UDCUP PO SCH ×2 (01:02→08:14)
[2021-05-01] MEDS ORDERED: FUROSEMIDE 40 MG/4 ML VIAL IV ONE (01:35)
[2021-05-01] MEDS: ONDANSETRON 4 MG/2 ML VIAL IV PRN ×2 (03:37→08:22)
[2021-05-01] MEDS: LINEZOLID INJ 600 MG/300 ML PREMIX IV SCH ×2 (03:38→15:28)
[2021-05-01] MEDS: ALPRAZolam 0.25 MG TABLET PO PRN ×2 (03:44→10:57)
[2021-05-01 06:44] LABS: Eosinophils % 0.9 % (0.00-10.9); Hematocrit 27.2 VOL% (35.7-47.0); Hemoglobin 8.2 GM/DL (12.0-16.0); Immature Granulocytes % 0.7 %; Immature Granulocytes Absolute 0.03 #; Lymphocytes # 0.6 10*3/uL (1.4-4.0); Lymphocytes % 13.9 % (21.3-54.2); Mean Corpuscular HGB Conc 30.1 GM/DL (32-36); Mean Corpuscular Volume 95.1 FL (87-102); Mean Platelet Volume 10.3 FL (9.6-12.0); Neutrophils % 76.5 % (38.7-73.9); Red Blood Count 2.86 MC/CUMM (3.8-5.5); Red Cell Distribution Width 18.2 % (9.3-17.3); White Blood Count 4.3 T/CUMM (4-12)
[2021-05-01 06:58] LABS: Albumin 2.2 G/DL (3.4-5.0); Bilirubin,Total 0.6 MG/DL (0.20-1.00); Calcium 7.2 MG/DL (8.5-10.1); Potassium 3.6 MMOL/L (3.5-5.1); Total Protein 6.4 G/DL (6.4-8.2)
[2021-05-01 07:22] LABS: Platelet Count 30 T/CUMM (130-400)
[2021-05-01 07:24] LABS: Hypochromasia 1+
[2021-05-01 07:25] LABS: Microcytosis 2+; Ovalocytes Slight
[2021-05-01 07:26] LABS: Platelet Estimate Decreased; Tear Drop Cells Slight
[2021-05-01] MEDS: MAGNESIUM CHLORIDE 64 MG TABLET PO SCH (08:13)
[2021-05-01] MEDS: CALCIUM (CARBONATE) 500 MG TABLET PO SCH (08:13)
[2021-05-01] MEDS: PANTOPRAZOLE 40 MG TABLET PO SCH (08:13)
[2021-05-01] MEDS: predniSONE 20 MG TABLET PO SCH (08:13)
[2021-05-01] MEDS: METOCLOPRAMIDE 5 MG TABLET PO SCH (08:13)
[2021-05-01] MEDS ORDERED: ERGOCALCIFEROL 50,000 UNIT CAPSULE PO SCH (09:00)
[2021-05-01 12:13] VITALS: BP 135/76
== END 2021-05-01 17:30 | disposition home health service (06) | DRG 840 ==
LOC: N.ED 15:20 → SUATTDRO 21:01 → N.EDINP 21:01 → N.2E 23:03
PROVIDERS: ADMIT Internal Medicine; ATTEND Internal Medicine